=== PATIENT | female | born 1975 | race African-American/Black ===

== ENCOUNTER 2018-09-13 18:31 | Emergency (ER) | payer OTHER ==
[~2018-09-13] VITALS: Ht 157.5 cm; Wt 59.0 kg
[2018-09-13 18:35] VITALS: BP 137/88; PULSE 82; RESP 18; Ht 157.5 cm; Wt 59.0 kg
[2018-09-13] MEDS ORDERED: KETOROLAC 15 MG INJ IM STA (19:29)
[2018-09-13] MEDS ORDERED: HYDROCODONE/APAP (5/325) TAB PO ONE (19:30)
[2018-09-13] MEDS ORDERED: predniSONE 20 MG TAB PO ONE (19:30)
--- NOTE | 2018-09-13 19:32 | ERD ---
ER Documentation Chief Complaint Chief Complaint left shoulder pain since last night. denies trauma HPI 43-year-old female, previously healthy, left-handed, presents the emergency department, complaining of acute onset of sharp, deep left shoulder pain. The patient denies any recent injuries, patient has a 1-year-old baby and she feels that the pain is caused by overuse. She denies fever, no chills, no distal weakness, numbness or tingling. No medications taken at this time because the patient is breast-feeding. ROS All systems reviewed and are negative except as per history of present illness. Medications Home Meds Active Scripts Hydrocodone/Acetaminophen ([place] 5-325 Tablet) 1 Each Tablet, 1 TAB PO BID PRN for PAIN, #8 TAB Prov:STACI PLAZA MD 09/13/18 Prednisone* (Prednisone*) 20 Mg Tab, 40 MG PO DAILY for 4 Days, TAB Prov:STACI PLAZA MD 09/13/18 Allergies Allergies: Coded Allergies: No Known Drug Allergies (Verified Allergy, Unknown, 09/13/18) PMhx/Soc De Quervain's tenosynovitis Medical and Surgical Hx: pt denies Medical Hx, pt denies Surgical Hx Hx Alcohol Use: No Hx Substance Use: No Hx Tobacco Use: No Smoking Status: Never smoker FmHx Family History: No diabetes, No coronary disease Physical Exam Vitals Vital Signs Date Temp Pulse Resp B/P (MAP) Pulse Ox O2 O2 Flow FiO2 Time Delivery Rate 09/13/18 99.3 82 18 137/88 100 18:35 (104) Physical Exam Const: No acute distress Head: Atraumatic Eyes: Normal Conjunctiva ENT: Normal External Ears, Nose and Mouth. Neck: Full range of motion. No meningismus. Resp: Clear to auscultation bilaterally Cardio: Regular rate and rhythm, no murmurs Abd: Soft, non tender, non distended. Normal bowel sounds Skin: No petechiae or rashes Back: No midline or flank tenderness Ext: Left shoulder: Normal inspection, diffuse tenderness to palpation of the rotator cuff area, decreased range of motion due to pain, distal neurovascular exam intact, no cyanosis, or edema Neur: Awake and alert Psych: Normal Mood and Affect Results 24 hrs Laboratory Tests Test 09/13/18 19:41 POC Beta HCG, Qualitative NEGATIVE Current Medications Medications Dose Sig/Kaylin Start Time Status Last (Trade) Ordered Route PRN Stop Time Admin Dose Reason Admin Ketorolac 15 mg ONCE STAT 09/13/18 DC 09/13/18 Tromethamine IM 19:29 09/13/18 19:47 (Toradol) 19:33 1 tab ONCE ONCE 09/13/18 DC 09/13/18 Acetaminophen PO 19:30 09/13/18 19:41 / 19:33 Hydrocodone Bitart ([place] (5/325)) Prednisone 40 mg ONCE ONCE 09/13/18 DC 09/13/18 (Prednisone) PO 19:30 09/13/18 19:41 19:33 Procedures/MDM Acute left shoulder pain: no red flags. Differential diagnosis include but not limited to: Shoulder contusion, bursitis, tendinitis, rotator cuff injury, tendon/ligament injury, arthritis; low suspicion for fracture, dislocation, septic arthritis. Neurovascular exam grossly intact. no clinical findings suggestive of acute infectious process, no acute deformity, no edema, no rashes. Physical examination and clinical presentation consistent most likely with left shoulder tendinitis. During the ED course the patient received treatment with Toradol IM presenting overall improvement of the symptoms. Results and clinical impression discussed with the patient who agrees with management. The patient is stable to be treated outpatient and will be discharged home with recommendations for ice, rest and NSAIDs 3 times daily for 5 days and close monitoring. The patient was instructed to follow up with the primary care provider in the next 48h. If symptoms persist, worsen or new symptoms develop, then patient should return to the ED immediately. Instructions explained and given to patient with acknowledgment and demonstrated understanding. Disclaimer: Inadvertent spelling and grammatical errors are likely due to EHR/dictation software use and do not reflect on the overall quality of patient care. Also, please note that the electronic time recorded on this note does not necessarily reflect the actual time of the patient encounter. Departure Diagnosis: Primary Impression: Left shoulder tendonitis Condition: Stable Additional Instructions: Thank you very much for allowing us to participate in your care. Your health and safety is our top priority at [facility]. The evaluation in the emergency department has been done to rule out an acute emergency, therefore, chronic conditions like malignancy or other diseases have not been evaluated; therefore, you need to follow up with a primary care provider in the next 48h. If symptoms persist, worsen or new symptoms develop, then patient should return to the ED immediately. Call your primary care doctor TOMORROW for an appointment during the next 2-4 days and bring all the information provided. Have prescriptions filled and follow precisely the directions on the label. If the symptoms get worse and your provider is unavailable, return to the Emergency Department immediately. STACI PLAZA MD September 13, 2018 19:32
[2018-09-13] MEDS ORDERED: HYDR-4011 PO (20:04)
[2018-09-13] MEDS ORDERED: PRED20TA PO (20:04)
== END 2018-09-13 20:13 | disposition home or self-care (01) ==
LOC: FTE 18:31
DX: M75.92 Shoulder lesion, unspecified, left shoulder (principal)
CPT/HCPCS: 81025; 96372; J1885; J7512; Z7502; Z7610